=== PATIENT | male | born 1955 | race Caucasian/White ===

== ENCOUNTER → 2021-04-12 | Outpatient (CLI) | payer MEDICARE ==
[~2021-04-12] MED LIST: BUPIVACAINE MPF 0.25% 10 ML VIAL. ONE; CRESTOR5 MG PO; IOHEXOL 180 MG/ML 10 ML VIAL. ONE; LISI20TA18 PO; METO-239 PO; TRAM50TA PO; VENL150C PO; methylPREDNISolone ACETATE 80 MG/ML VIAL. ONE
--- NOTE | 2021-04-12 15:36 | PDOC1 ---
INITIAL PAIN CONSULT DATE OF SERVICE: DOS: DATE: 04/12/21 TIME: 15:29 CHIEF COMPLAINT: Chief Complaint: Low back and left lower extremity pain HISTORY OF PRESENT ILLNESS: 65-year-old male presents history of pain low back left lower extremity since about 2008 has had surgery on his back with fusion at the L3-4 level which decrease the pain temporarily but the pain returned about a year and a half ago or so without the result of any specific injury or accident that he is aware of. Patient reports now the pain is in the low back on the left side rating the posterior lateral thigh lateral calf into the posterior calf and occasionally to the foot patient reports is tingling and burning described the pain in the back is constant and stabbing sharp in the leg throbbing in the leg and back with some numbness in the leg and foot on the left side can be aching as well. Patient reports is worse with walking standing better with sitting or laying down but wakes him from sleep about once or twice a night does not affect his bowel bladder control does affect his ability to walk and he has a cane he uses at times it does not have that with him today. Patient has had epidural injections in the past in [facility] [place][Note 2] as well as chiropractic treatment recently physical therapy was tried but was not significantly decreasing the pain he is doing physical therapy exercises daily however and continues to walk daily as well. Patient is taking tramadol as well as hydrocodone both of which do decrease the pain he is out had any hydrocodone for many years with tramadol he took as recently as this morning which decrease the pain by about 50%. Patient had a CT scan showing dorsal instrumented fusion L3-L4 with accelerated general changes at the junctional level seen at L2-3 and more so than L4-L5. Patient has at least moderate central stenosis at L2-3. PAST MEDICAL HISTORY: PMH: Hypertension, arthritis, depression, hearing loss PREVIOUS SURGERIES: Past Surgical Hx: Hernia surgery x2 lumbar laminectomy 2010 2011 with fusion, cervical spine fusion CURRENT MEDICATIONS: Current Meds: Active Scripts Medications Dose Route/Sig Max Daily Dose Days Date Category Metoprolol Succinate ( Xl ) (Metoprolol Succinate) 25 Mg Tab.er.24h Unknown Dose PO DAILY 04/12/21 Reported Effexor Xr (Venlafaxine Hcl) 150 Mg Cap.er.24h 1 Cap PO DAILY 04/12/21 Reported Crestor (Rosuvastatin Calcium) 5 Mg Tablet 10 Mg PO HS 04/12/21 Reported Lisinopril 20 Mg Tablet 1 Tab PO DAILY 04/12/21 Reported Tramadol Hcl 50 Mg Tablet 25 Mg PO Q6HRS PRN 04/12/21 Reported FAMILY HISTORY: Family Hx: Colon cancer, heart disease SOCIAL HISTORY: Social Hx: Patient drinks alcohol about 10 beverages a week does not smoke says any illegal illicit or recreational drugs is single lives locally in [facility] REVIEW OF SYSTEMS: ROS: Positive for those items mentioned in history of present illness, all systems are reviewed, otherwise negative ,and are complete full and well-documented on patient's chart. PHYSICAL EXAM: VS: Blood pressure is 131/81 pulse 74 respirations 18 temperature is 99.1 F height is 6 foot weight is 214 pounds PE: PHYSICAL EXAMINATION: GENERAL: The patient is awake, alert, oriented, appropriate, very pleasant demeanor HEENT: Shows normocephalic, atraumatic. Extraocular movements are intact and symmetrical. Oral cavity: Mucous membranes moist and pink. Dentition is intact. NECK: Shows anterior throat supple without palpable lymphadenopathy noted. Swallow reflex symmetrical. CHEST: Shows normal on inspection. Breath sounds are clear bilaterally, no rales rhonchi or wheeze auscultated. HEART: Shows S1, S2 clear. No murmurs auscultated. ABDOMEN: Soft, nontender, nondistended, obese. No palpable organomegaly is noted. No rebound or guarding demonstrated. BACK: Shows spine grossly in the midline. Normal-appearing cervical lordotic curvature. There is slightly increased thoracic kyphosis, some minor flattening of the lumbar lordotic curvature. Lumbar paraspinous muscles show symmetrical on inspection, on palpation shows some moderate tenderness diffusely throughout the upper, middle and lower distribution of the paraspinous muscles bilaterally and also into the lower thoracic paraspinous musculature, firm and tender, but without specific trigger points, without radiation of pain. The patient has good rotational motion of the lumbar spine, both laterally as well as extension and flexion without significant difficulty. No tenderness over the spinous processes, sacrum or sacroiliac regions. EXTREMITIES: Lower extremities show deep tendon reflexes 2+ in the patellar and tendo calcaneus tendons. Motor exam is 5 on a scale of 5 with right dorsiflexion, extension, quadriceps and hamstring flexion and 4/5 on the left. Peripheral pulses are one posterior tibial. No peripheral edema is noted bilaterally. Lower extremities are warm and dry to touch, equal in color and appearance. Straight leg raise noted to be positive on the left at approximately 40 degrees, decreased with knee flexion, right side is negative. Gaenslen's and Mamadou's maneuvers are negative bilateral as well. The patient is able to stand, stand on his toes loses balance with putting all his weight on his left leg but walks with a slight favoring gait does appear to favor the left lower extremity mildly but without foot drop without any assistive devices on a short walk in the office today. SKIN: Shows warm and dry, good turgor. No edema. No sores, rashes or bruising throughout. IMPRESSION: Impression: 65-year-old male with long history of low back left lower extremity pain worse over the past year or so in a radicular fashion. CT scan lumbar spine as noted Arthritis Hypertension Hearing loss Plan: Options were discussed with the patient including conservative medical management physical therapies and interventional techniques. Patient would like to interventional techniques. We discussed a left L4-5 transforaminal epidural injection using description as well as anatomical models to describe the procedure. Risks were discussed including but not limited to: Bleeding, infection, possibility of epidural hematoma and subsequent neurological compromise, dural puncture, headaches, spinal cord and/or nerve damage, side effects of steroid medication, and poor results regarding pain control. Patient understands and wished to proceed. Patient will return to the clinic in approximately 2 weeks for follow-up, was counseled as to return appointment activity level and side effects to be aware of. Under sterile prep and drape patient was placed in prone position using C-arm fluoroscopic guidance to identify the L4-5 distribution oblique and slightly cephalad angled C arm. The left L4-5 target was identified and using lidocaine for anesthetizing the skin 22-gauge Lorri pencil point needle was then used to enter the skin and into the subcutaneous tissues using direct C-arm fluoroscopic guidance to guide the needle into the transforaminal aspect of the left L4-5 vertebrae this was confirmed with lateral views showing the needle tip in the superior aspect of the paravertebral region. Aspiration was noted to be negative, -1.5 cc of contrast was then injected with good spread both medially into the epidural space as well as laterally along the nerve root without uptake and without distribution and uptake on digital subtraction. At this time, a solution containing 2 cc of 0.25% bupivacaine and 80 mg of Depo-Medrol was then injected. Needle was withdrawn and sterile bandage was applied. Patient tolerated procedure well had no immediate complications HEVER HERNANDEZ MD Apr 12, 2021 15:36
--- NOTE | 2021-04-12 15:37 | PDOC4 ---
Procedure Note: Procedure Note: Patient was consented for left L4-5 transforaminal lumbar epidural steroid injection with fluoroscopic guidance. Risks were discussed including but not limited to: Bleeding, infection, possibility of epidural hematoma and subsequent neurological compromise, dural puncture, headaches, spinal cord and/or nerve damage, side effects of steroid medication, potential injection into the vertebral artery at that level and permanent ischemic damage, and poor results regarding pain control. Patient understands and wishes to proceed. Under sterile prep and drape patient was placed in prone position using C-arm fluoroscopic guidance to identify the L4-5 distribution oblique and slightly cephalad angled C arm. The left L4-5 target was identified and using lidocaine for anesthetizing the skin 22-gauge Lorri pencil point needle was then used to enter the skin and into the subcutaneous tissues using direct C-arm fluoroscopic guidance to guide the needle into the transforaminal aspect of the left L4-5 vertebrae this was confirmed with lateral views showing the needle tip in the superior aspect of the paravertebral region. Aspiration was noted to be negative, -1.5 cc of contrast was then injected with good spread both medially into the epidural space as well as laterally along the nerve root without uptake and without distribution and uptake on digital subtraction. At this time, a solution containing 2 cc of 0.25% bupivacaine and 80 mg of Depo-Medrol was then injected. Needle was withdrawn and sterile bandage was applied. Patient tolerated procedure well had no immediate complications. HEVER HERNANDEZ MD Apr 12, 2021 15:37
== END | disposition home or self-care (01) ==
LOC: PNCL 09:19
PROVIDERS: ATTEND Anesthesiology
DX: M54.5 Low back pain (principal); M79.605 Pain in left leg; I10 Essential (primary) hypertension; M19.90 Unspecified osteoarthritis, unspecified site; F32.9 Major depressive disorder, single episode, unspecified; Z79.899 Other long term (current) drug therapy; Z98.890 Other specified postprocedural states
CPT/HCPCS: 64483; J1040; J3490; Q9965

== ENCOUNTER → 2021-05-31 | Outpatient (CLI) | payer MEDICARE ==
[~2021-05-31] MED LIST changes: +HYDR-2761 PO
--- NOTE | 2021-05-31 15:31 | PDOC ---
Progress Note - Pain Clinic Date of Service: DOS: DATE: 05/31/21 TIME: 15:27 Diagnosis: Dx: Lumbar to colopathy with lumbar degenerative disease lumbar spinal stenosis lumbar postlaminectomy syndrome History or Present Illness: HPI: 66-year-old returns for follow-up status post left L4-5 transforaminal injection. Patient reports he did very well with about 75% improvement for the first 3 to 4 weeks following the injection. Patient reports pain returning down the low back and the left lower extremity posterior gluteus posterior lateral thigh lateral anterior thigh anteromedial thigh and lateral thigh but mostly the front of the lower leg patient reports is constant severe unbearable at times burning aching pain came back fairly quickly patient reports prior to this he was doing much better with increased activity distance walking doing household activities travel with greater ease and comfort sleeping better at night patient reports the pain is returning now rates a 10 on scale 10 is worse over the past week 9 on average 7 its least is a 7 today. Patient works burning aching constant severe also pain in the mid upper back and between the shoulder blades with some increased pain secondary. Patient reports no new bowel or bladder incontinence patient reports no motor deficits but significant fatigability of the left lower extremity compared to the right with ambulation. Physical Exam: VS: Blood pressure is 150/93 pulse 101 respirations 18 temperature 98.0 F height is 6 foot weight is 209 pounds PE: PHYSICAL EXAMINATION: GENERAL: The patient is awake, alert, oriented, appropriate, very pleasant in d emeanor HEENT: Shows normocephalic, atraumatic. Extraocular movements are intact and symmetrical. Oral cavity: Mucous membranes moist and pink. Dentition is intact. NECK: Shows anterior throat supple without palpable lymphadenopathy noted. Swallow reflex symmetrical. CHEST: Shows normal on inspection. Breath sounds are clear bilaterally, no rales or rhonchi. HEART: Shows S1, S2 clear. No murmurs auscultated. ABDOMEN: Soft, nontender, nondistended, obese. No palpable organomegaly is noted. BACK: Shows spine grossly in the midline. Normal-appearing cervical lordotic curvature. There is slightly increased thoracic kyphosis, some minor flattening of the lumbar lordotic curvature. Lumbar paraspinous muscles show symmetrical on inspection, on palpation shows some moderate tenderness diffusely throughout the upper, middle and lower distribution of the paraspinous musculature, but without specific trigger points, without radiation of pain. The patient has good rotational motion of the lumbar spine, both laterally as well as extension and flexion without significant difficulty. No tenderness over the spinous processes, sacrum or sacroiliac regions. EXTREMITIES: Lower extremities show deep tendon reflexes 2+ in the patellar and tendo calcaneus tendons. Motor exam is 5 on a scale of 5 with right dorsiflexion, extension, quadriceps and hamstring flexion and 4/5 on the left. Peripheral pulses are 1+ posterior tibial. No peripheral edema is noted bilaterally. Lower extremities are warm and dry to touch, equal in color and appearance. SKIN: Shows warm and dry, good turgor. No edema. No sores, rashes or bruising throughout. Procedure: Procedure: Options were discussed with the patient. Patient's old chart was reviewed as his current medication regimen updated current review of systems updated today as well. We will proceed with a left L4-5 transforaminal injection today with fluoroscopic guidance. Risks were discussed including but not limited to: Bleeding, infection, possibility of epidural hematoma and subsequent neurological compromise, dural puncture, headaches, spinal cord and/or nerve damage, potential injection of the vertebral artery at that level and permanent ischemic damage, side effects of steroid medication, and poor results regarding pain control. Patient understands and wished to proceed. Patient will return to clinic in approximate 2 weeks for follow-up, was counseled as to return appointment, activity levels, and side effects beware of. Medication Injected: Med Injected: Under sterile prep and drape patient was placed in prone position using C-arm fluoroscopic guidance to identify the L4-5 distribution oblique and slightly cephalad angled C arm. The left L4-5 target was identified and using lidocaine for anesthetizing the skin 22-gauge Lorri pencil point needle was then used to enter the skin and into the subcutaneous tissues using direct C-arm fluoroscopic guidance to guide the needle into the transforaminal aspect of the left L4-5 vertebrae this was confirmed with lateral views showing the needle tip in the superior aspect of the paravertebral region. Aspiration was noted to be negative, -1.5 cc of contrast was then injected with good spread both medially into the epidural space as well as laterally along the nerve root without uptake and without distribution and uptake on digital subtraction. At this time, a solution containing 2 cc of 0.25% bupivacaine and 80 mg of Depo-Medrol was then injected. Needle was withdrawn and sterile bandage was applied. Patient tolerated procedure well had no immediate complications Condition at Discharge: Condition at Discharge: Condition at discharge stable, patient alert the procedure well and had no complications. HEVER HERNANDEZ MD May 31, 2021 15:31
== END | disposition home or self-care (01) ==
LOC: PNCL 14:04
PROVIDERS: ATTEND Anesthesiology
DX: M51.16 Intervertebral disc disorders with radiculopathy, lumbar region (principal); M48.061 Spinal stenosis, lumbar region without neurogenic claudication; M96.1 Postlaminectomy syndrome, not elsewhere classified; Z79.899 Other long term (current) drug therapy
CPT/HCPCS: 64483; J1040; J3490; Q9965

== ENCOUNTER → 2021-06-09 | Outpatient (CLI) | payer MEDICARE ==
[~2021-06-09] MED LIST changes: -BUPIVACAINE MPF 0.25% 10 ML VIAL. ONE; -IOHEXOL 180 MG/ML 10 ML VIAL. ONE; -methylPREDNISolone ACETATE 80 MG/ML VIAL. ONE
--- NOTE | 2021-06-09 14:32 | PDOC ---
Progress Note - Pain Clinic Date of Service: DOS: DATE: 06/09/21 TIME: 14:30 Diagnosis: Dx: Lumbar radiculopathy with lumbar degenerative disc disease lumbar spinal stenosis and lumbar postlaminectomy syndrome History or Present Illness: HPI: Telemedicine visit today with patient with identity verified with full date of and full name, total time spent: 14 minutes 66-year-old male via telemedicine visit today after lumbar left L4-5 transforaminal injection x2 most recently May 31. Patient reports he did very well with about a 75% improvement but the pain returning now and is questioning if he can have a refill of hydrocodone as we gave him 30 tablets on that date and he is taken those. Patient reports while his pain was better it only lasted for about a week or so when the pain began to return and the hydrocodone does help him get through his daily activities. We discussed in detail that we would not provide these long-term but while we are treating him is certainly an option to help him get through till his next treatment is completed. Patient understands we will call in electronically prescribed hydrocodone 5 mg #30 with instructions side effects aware discussed. Patient will follow up in approximately 1 week as scheduled. HEVER HERNANDEZ MD Jun 09, 2021 14:32
== END | disposition home or self-care (01) ==
LOC: PNCL 11:17
PROVIDERS: ATTEND Anesthesiology
DX: M51.16 Intervertebral disc disorders with radiculopathy, lumbar region (principal); M48.061 Spinal stenosis, lumbar region without neurogenic claudication; M96.1 Postlaminectomy syndrome, not elsewhere classified; Z79.899 Other long term (current) drug therapy
CPT/HCPCS: G0463

== ENCOUNTER → 2021-06-15 | Outpatient (CLI) | payer MEDICARE ==
[~2021-06-15] MED LIST changes: +BUPIVACAINE MPF 0.25% 10 ML VIAL. ONE; +IOHEXOL 180 MG/ML 10 ML VIAL. ONE; +methylPREDNISolone ACETATE 80 MG/ML VIAL. ONE
--- NOTE | 2021-06-15 10:05 | PDOC ---
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 Patient report is now aching sharp burning constant severe unbearable in the left leg is not back to baseline but about 40% improvement overall only at where he was previously 80% prior to the activity l week. Patient reports he is taking hydrocodone 1 in the morning and a half at night scribes pain is a 9 on scale 10 is worse over the past week 9 on average 7 its least is a 7 today. Patient scribes as aching and burning constant severe and unbearable at times radiating the left lower extremity posterior gluteus lateral thigh anterior thigh medial thigh medial lower leg and lateral lower leg with some numbness as well. Patient reports weakness in the left leg as well with walking and standing. Patient reports he continues to sleep fairly well generally does not awaken him from sleep at night. Patient reports no bowel or bladder incontinence. Physical Exam: VS: Blood pressure is 174 103 pulse 107 respirations 16 temperature 98.2 F weight is 205 pounds. PE: PHYSICAL EXAMINATION: GENERAL: The patient is awake, alert, oriented, appropriate, very pleasant in demeanor HEENT: Shows normocephalic, atraumatic. Extraocular movements are intact and symmetrical. Oral cavity: Mucous membranes moist and pink. Dentition is intact. NECK: Shows anterior throat supple without palpable lymphadenopathy noted. Swallow reflex symmetrical. CHEST: Shows normal on inspection. Breath sounds are clear bilaterally, distant no rales or rhonchi. HEART: Shows S1, S2 clear. No murmurs auscultated. ABDOMEN: Soft, nontender, nondistended, obese. No palpable organomegaly is noted. BACK: Shows spine grossly in the midline. Normal-appearing cervical lordotic curvature. There is increased thoracic kyphosis, some flattening of the lumbar lordotic curvature with well-healed surgical scarring again noted. Lumbar paraspinous muscles show symmetrical on inspection, on palpation shows some moderate tenderness diffusely throughout the upper, middle and lower distribution of the paraspinous muscles, but without specific trigger points, without radiation of pain. The patient has good rotational motion of the lumbar spine, both laterally as well as extension and flexion without significant difficulty. No tenderness over the spinous processes, sacrum or sacroiliac regions. EXTREMITIES: Lower extremities show deep tendon reflexes 2 in the patellar and tendo calcaneus tendons. Motor exam is 5 on a scale of 5 with right dorsiflexion, extension, quadriceps and hamstring flexion and 4/5 on the left. Peripheral pulses are 1 posterior tibial. No peripheral edema is noted bilaterally. Lower extremities are warm and dry to touch, equal in color and appearance. SKIN: Shows warm and dry, good turgor. No edema. No sores, rashes or bruising throughout. Procedure: Procedure: Options discussed with patient. Patient chart reviewed his current medication regimen updated current view systems updated today as well. We will proceed with a third in the series left L4-5 transforaminal epidural steroid injection with fluoroscopic guidance. Risks were discussed including but not limited to: Bleeding, infection, possibility of epidural hematoma and subsequent neurologi panda compromise, dural puncture, headaches, spinal cord and/or nerve damage, potential injection of vertebral artery at that level and permanent ischemic damage, side effects of steroid medication, and poor results regarding pain control. Patient understands and wished to proceed. Also discussed addition of muscle relaxant as these have some significant spasticity in the mid upper back and we will prescribe new medication of cyclobenzaprine 10 mg 3 times daily. Patient was given instructions well side effects aware with the medication. Medication Injected: Med Injected: Under sterile prep and drape patient was placed in prone position using C-arm fluoroscopic guidance to identify the L4-5 distribution oblique and slightly ce phalad angled C arm. The left L4-5 target was identified and using lidocaine for anesthetizing the skin 22-gauge Lorri pencil point needle was then used to enter the skin and into the subcutaneous tissues using direct C-arm fluoroscopic guidance to guide the needle into the transforaminal aspect of the left L4-5 vertebrae this was confirmed with lateral views showing the needle tip in the superior aspect of the paravertebral region. Aspiration was noted to be negative, -1.5 cc of contrast was then injected with good spread both medially into the epidural space as well as laterally along the nerve root without uptake and without distribution and uptake on digital subtraction. At this time, a solution containing 2 cc of 0.25% bupivacaine and 80 mg of Depo-Medrol was then injected. Needle was withdrawn and sterile bandage was applied. Patient tolerated procedure well had no immediate complications Condition at Discharge: Condition at Discharge: Condition at discharge stable, pain tolerated the procedure well and had no complications. New medication of Flexeril 10 mg 3 times daily will be called into patient's pharmacy. Patient was given instructions well side effects beware with the medication. HEVER HERNANDEZ MD Jun 15, 2021 10:05
--- NOTE | 2021-06-15 10:06 | PDOC4 ---
Procedure Note: ICD 10 Code: ICD 10 Code: M54.16 M4 8.06 M51.36 M 96.1 Procedure Note: Patient was consented for left L4-5 lumbar transforaminal steroid injection with fluoroscopic guidance. Risks were discussed including but not limited to: Bleeding, infection, possibility of epidural hematoma and subsequent neurol ogical compromise, dural puncture, headaches, spinal cord and/or nerve damage, potential injection of the vertebral artery at that level and permanent ischemic damage, side effects of steroid medication, and poor results regarding pain control. Patient understands and wished to proceed. Under sterile prep and drape patient was placed in prone position using C-arm fluoroscopic guidance to identify the L4-5 distribution oblique and slightly cephalad angled C arm. The left L4-5 target was identified and using lidocaine for anesthetizing the skin 22-gauge Lorri pencil point needle was then used to enter the skin and into the subcutaneous tissues using direct C-arm fluoroscopic guidance to guide the needle into the transforaminal aspect of the left L4-5 vertebrae this was confirmed with lateral views showing the needle tip in the superior aspect of the paravertebral region. Aspiration was noted to be negative, -1.5 cc of contrast was then injected with good spread both medially into the epidural space as well as laterally along the nerve root without uptake and without distribution and uptake on digital subtraction. At this time, a solution containing 2 cc of 0.25% bupivacaine and 80 mg of Depo-Medrol was then injected. Needle was withdrawn and sterile bandage was applied. Patient tolerated procedure well had no immediate complications HEVER HERNANDEZ MD Jun 15, 2021 10:06
== END | disposition home or self-care (01) ==
LOC: PNCL 09:23
PROVIDERS: ATTEND Anesthesiology
DX: M51.16 Intervertebral disc disorders with radiculopathy, lumbar region (principal); M48.061 Spinal stenosis, lumbar region without neurogenic claudication; M96.1 Postlaminectomy syndrome, not elsewhere classified; Z79.899 Other long term (current) drug therapy
CPT/HCPCS: 64483; J1040; J3490; Q9965

== ENCOUNTER → 2021-11-01 | Outpatient (CLI) | payer MEDICARE ==
[~2021-11-01] MED LIST changes: +DEXAMETHASONE PRES.FREE 10 MG/ML VIAL. ONE; +UBID50TA PO; -methylPREDNISolone ACETATE 80 MG/ML VIAL. ONE
--- NOTE | 2021-11-01 10:20 | PDOC ---
Progress Note - Pain Clinic Date of Service: DOS: DATE: 11/01/21 TIME: 10:15 Diagnosis: Dx: Lumbar radiculopathy lumbar degenerative disease lumbar spinal stenosis and lumbar postlaminectomy syndrome Osteoarthritis History or Present Illness: HPI: 66-year-old male returns last seen June 15, 2021 with very good results after transforaminal injection on the left at L4-5 at 95% improvement for the first 2 months and then for 3 months later got 75% improvement pain is returning no becoming more noticeable in the left lower extremity posterior gluteus lateral thigh anterior thigh medial thigh medial lower leg into the ankle and foot and the great toe on the left side only patient reports it is sore to the touch in the back and is having difficulty with balance and some foot drop occasionally with walking patient report is aching and burning can be constant as well patient reports a 9 on scale 10 is worse over the past week 8 on average 6 its least is a 6 today patient reports is better with sitting or laying down generally does not awaken him from sleep most nights but over the past few weeks it has patient reports no bowel or bladder incontinence but significant fatigability the left leg and has reports that he "cannot feel my leg when stepping or standing" also reports that his toe is curling on the left side which is causing difficulty with ambulation as well. Patient scribes pain is aching and burning can be constant shooting and stabbing in the leg. Patient also reports significant pain in the upper back with some cracking and popping sensations as well as soreness in the joints of the shoulders. Physical Exam: VS: Blood pressure is 150/89 pulse 107 respirations 16 temperature 98.3 F height is 6 foot weight is 232 pounds. PE: PHYSICAL EXAMINATION: GENERAL: The patient is awake, alert, oriented, appropriate, very pleasant in demeanor HEENT: Shows normocephalic, atraumatic. Extraocular movements are intact and symmetrical. Oral cavity: Mucous membranes moist and pink. Dentition is intact. NECK: Shows anterior throat supple without palpable lymphadenopathy noted. Swallow reflex symmetrical. CHEST: Shows normal on inspection. Breath sounds are clear bilaterally, distant but no rales rhonchi or wheezes auscultated. HEART: Shows S1, S2 clear. No murmurs auscultated. ABDOMEN: Soft, nontender, nondistended. No palpable organomegaly is noted. No rebound or guarding demonstrated. BACK: Shows spine grossly in the midline. Normal-appearing cervical lordotic curvature. There is mildly increased thoracic kyphosis, some flattening of the lumbar lordotic curvature, with well-healed surgical scarring noted. Thoracic paraspinous muscles show symmetrical inspection on palpation some moderate tenderness diffusely bilaterally between the rhomboid distribution as well as into the inferior cervical distribution but without atrophy hypertrophy or asymmetry. Lumbar paraspinous muscles show symmetrical on inspection, on palpation shows some moderate tenderness diffusely throughout the upper, middle and lower distribution of the paraspinous muscles, but without specific trigger points, without radiation of pain. The patient has good rotational motion of the lumbar spine, both laterally as well as extension and flexion without significant difficulty. No tenderness over the spinous processes, sacrum or sacroiliac regions. EXTREMITIES: Lower extremities show deep tendon reflexes 2+ in the patellar and tendo calcaneus tendons. Motor exam is 5 on a scale of 5 with right dorsiflexion, extension, quadriceps and hamstring flexion and 4/5 on the left. Peripheral pulses are 1 posterior tibial. No peripheral edema is noted bilaterally. Lower extremities are warm and dry. SKIN: Shows warm and dry, good turgor. No edema. No sores, rashes or bruising throughout. Procedure: Procedure: Options were discussed with patient. Patient's old chart was reviewed his current medication regimen updated current review of systems updated today as well. We will proceed with a left-sided L4-5 transforaminal epidural steroid injection today with fluoroscopic guidance. Risks were discussed including but not limited to: Bleeding, infection, possibility of epidural hematoma and subsequent neurological compromise, dural puncture, headaches, spinal cord and/or nerve damage, potential injection into the vertebral artery at that level and permanent ischemic damage, side effects of steroid medication, and poor results regarding pain control. Patient understands and wished to proceed. Patient will return to clinic in approximately 2 weeks for follow-up, was counseled as to return appointment, activity level, and side effects to be aware of. Also, discussing patient's arthritic symptoms, we will prescribe new medication of meloxicam 15 mg 1 tablet daily. Patient was given instruction as well as side effects beware with the new prescription medication as well. Medication Injected: Med Injected: Under sterile prep and drape patient was placed in prone position using C-arm fluoroscopic guidance to identify the L4-5 distribution oblique and slightly cephalad angled C arm. The left L4-5 target was identified and using lidocaine for anesthetizing the skin 22-gauge Lorri pencil point needle was then used to enter the skin and into the subcutaneous tissues using direct C-arm fluoroscopic guidance to guide the needle into the transforaminal aspect of the left L4-5 vertebrae this was confirmed with lateral views showing the needle tip in the superior aspect of the paravertebral region. Aspiration was noted to be negative, -1.5 cc of contrast was then injected with good spread both medially into the epidural space as well as laterally along the nerve root without uptake and without distribution and uptake on digital subtraction. At this time, a solution containing 2 cc of 0.25% bupivacaine and 10 mg dexamethasone was then injected. Needle was withdrawn and sterile bandage was applied. Patient tolerated procedure well had no immediate complications Condition at Discharge: Condition at Discharge: Condition at discharge stable, patient Oscar the procedure well and had no complications. HEVER HERNANDEZ MD Nov 01, 2021 10:20
== END | disposition home or self-care (01) ==
LOC: PNCL 09:27
PROVIDERS: ATTEND Anesthesiology
DX: M51.16 Intervertebral disc disorders with radiculopathy, lumbar region (principal); M48.061 Spinal stenosis, lumbar region without neurogenic claudication; M96.1 Postlaminectomy syndrome, not elsewhere classified; M19.90 Unspecified osteoarthritis, unspecified site; Z79.899 Other long term (current) drug therapy
CPT/HCPCS: 64483; J1100; J3490; Q9965

== ENCOUNTER → 2022-01-24 | Outpatient (CLI) | payer MEDICARE ==
[~2022-01-24] MED LIST changes: -VENL150C PO; +VENL150C3 PO
--- NOTE | 2022-01-24 12:52 | PDOC ---
Progress Note - Pain Clinic Date of Service: DOS: DATE: 01/24/22 TIME: 12:48 Diagnosis: Dx: Lumbar radiculopathy with lumbar degenerative disease lumbar spinal stenosis and lumbar postlaminectomy syndrome History or Present Illness: HPI: 66-year-old male returns for follow-up status post left transforaminal injection L45 last seen November 01, 2021 patient did very well reports the numbness in his left foot is much better and has better spatial orientation with walking without having a look at his left foot after the injections patient reports the pain returning now in the low back and left lower extremity posterior gluteus posterior lateral thigh lateral anterior thigh anteromedial thigh medial lower leg and into the foot and as well as in the low back patient reports some pain in the right side low back which is new for him as well but only present for about a month or so not the result of any injury or accident that he is aware of patient reports he is sleeping fairly well at night although it is beginning to awaken him from sleep once again and the right sided low back pain is somewhat concerning however it is not radiating into the lower extremity like the left side has been doing. Patient reports no loss of motor function but significant fatigability and numbness in the left leg and foot again better after the last visit patient was increasing distance walking doing household activities travel with greater ease and comfort sleeping better at night now is beginning to be more difficult with all these activities patient reports his pain as a 6-9 on scale 10 is worse over the past week 8 on average 6 at its least and is a 6 today. Patient reports no bowel or bladder incontinence. Physical Exam: VS: Blood pressure is 143/98 pulse 103 respirations are 18 temperature is 98.8 F height is 6 foot weight is 226 pounds. PE: PHYSICAL EXAMINATION: GENERAL: The patient is awake, alert, oriented, appropriate, very pleasant in demeanor HEENT: Shows normocephalic, atraumatic. Extraocular movements are intact and symmetrical. Oral cavity: Mucous membranes moist and pink. Dentition is intact. NECK: Shows anterior throat supple without palpable lymphadenopathy noted. Swallow reflex symmetrical. CHEST: Shows normal on inspection. Breath sounds are clear bilaterally. HEART: Shows S1, S2 clear. No murmurs auscultated. ABDOMEN: Soft, nontender, nondistended. No palpable organomegaly is noted. No rebound or guarding demonstrated. BACK: Shows spine grossly in the midline. Normal-appearing cervical lordotic curvature. There is slightly increased thoracic kyphosis, some moderate flattening of the lumbar lordotic curvature with well-healed surgical scarring noted. Lumbar paraspinous muscles show symmetrical on inspection, on palpation shows some moderate tenderness diffusely throughout the upper, middle and lower distribution of the paraspinous muscles, but without specific trigger points, without radiation of pain. The patient has good rotational motion of the lumbar spine, both laterally as well as extension and flexion without significant difficulty. EXTREMITIES: Lower extremities show deep tendon reflexes 2 in the patellar and tendo calcaneus tendons. Motor exam is 5 on a scale of 5 with right dorsiflexion, extension, quadriceps and hamstring flexion and 4/5 on the left. Peripheral pulses are 1+ posterior tibial. No peripheral edema is noted bilaterally. Lower extremities are warm and dry to touch, equal in color and appearance. SKIN: Shows warm and dry, good turgor. No edema. No sores, rashes or bruising throughout. Procedure: Procedure: -year-oldOptions discussed with patient. Patient's old chart was reviewed his current medication regimen updated current review of systems updated today as we ll. We will proceed with a left-sided L4-5 transforaminal injection today with fluoroscopic guidance. Risks were discussed including but not limited to: Bleeding, infection, possibility of epidural hematoma and subsequent neurological compromise, dural puncture, headaches, spinal cord and/or nerve damage, potential injection of vertebral artery at level and permanent ischemic damage, side effects of steroid medication, and poor results regarding pain control. Patient understands and wished to proceed. Patient will return to the clinic in approximately 4 weeks for follow-up, was counseled as to return appointment, activity level, and side effects to be aware of. Medication Injected: Med Injected: Under sterile prep and drape patient was placed in prone position using C-arm fluoroscopic guidance to identify the L4-5 distribution oblique and slightly cephalad angled C arm. The left L4-5 target was identified and using lidocaine for anesthetizing the skin 22-gauge Lorri pencil point needle was then used to enter the skin and into the subcutaneous tissues using direct C-arm fluoroscopic guidance to guide the needle into the transforaminal aspect of the left L4-5 vertebrae this was confirmed with lateral views showing the needle tip in the superior aspect of the paravertebral region. Aspiration was noted to be negative, -1.5 cc of contrast was then injected with good spread both medially into the epidural space as well as laterally along the nerve root without uptake and without distribution and uptake on digital subtraction. At this time, a solution containing 2 cc of 0.25% bupivacaine and 20 mg dexamethasone was then injected. Needle was withdrawn and sterile bandage was applied. Patient tolerated procedure well had no immediate complications Condition at Discharge: Condition at Discharge: Condition at discharge stable, paced tolerated procedure well and had no complications. HEVER HERNANDEZ MD January 24, 2022 12:52
--- NOTE | 2022-01-24 12:53 | PDOC4 ---
Procedure Note: ICD 10 Code: ICD 10 Code: M54.16 M51.36 M48.06 M96.1 Procedure Note: Patient was consented for left L4-5 transforaminal epidural steroid injection with fluoroscopic guidance. Risks were discussed including but not limited to: Bleeding, infection, possibility of epidural hematoma and subsequent neurol ogical compromise, dural puncture, headaches, spinal cord and/or nerve damage, potential injection into the vertebral artery at level and permanent ischemic damage, side effects of steroid medication, and poor results regarding pain control. Patient understands and wished to proceed. Under sterile prep and drape patient was placed in prone position using C-arm fluoroscopic guidance to identify the L4-5 distribution oblique and slightly cephalad angled C arm. The left L4-5 target was identified and using lidocaine for anesthetizing the skin 22-gauge Lorri pencil point needle was then used to enter the skin and into the subcutaneous tissues using direct C-arm fluoroscopic guidance to guide the needle into the transforaminal aspect of the left L4-5 vertebrae this was confirmed with lateral views showing the needle tip in the superior aspect of the paravertebral region. Aspiration was noted to be negative, -1.5 cc of contrast was then injected with good spread both medially into the epidural space as well as laterally along the nerve root without uptake and without distribution and uptake on digital subtraction. At this time, a stuart ution containing 2 cc of 0.25% bupivacaine and 20 mg dexamethasone was then injected. Needle was withdrawn and sterile bandage was applied. Patient tolerated procedure well had no immediate complications HEVER HERNANDEZ MD January 24, 2022 12:53
== END | disposition home or self-care (01) ==
LOC: PNCL 11:27
PROVIDERS: ATTEND Anesthesiology
DX: M51.16 Intervertebral disc disorders with radiculopathy, lumbar region (principal); M48.061 Spinal stenosis, lumbar region without neurogenic claudication; M96.1 Postlaminectomy syndrome, not elsewhere classified; Z79.899 Other long term (current) drug therapy
CPT/HCPCS: 64483; J1100; J3490; Q9965

== ENCOUNTER → 2022-02-14 | Outpatient (CLI) | payer MEDICARE ==
[~2022-02-14] MED LIST changes: -BUPIVACAINE MPF 0.25% 10 ML VIAL. ONE; -DEXAMETHASONE PRES.FREE 10 MG/ML VIAL. ONE; -IOHEXOL 180 MG/ML 10 ML VIAL. ONE
--- NOTE | 2022-02-14 16:27 | PDOC ---
Progress Note - Pain Clinic Date of Service: DOS: DATE: 02/14/22 TIME: 16:23 Diagnosis: Dx: Telemedicine visit today with patient's identity verified with full name as well as full date of . Total time spent 12 minutes, telephone voice only 66-year-old male via telemedicine visit today requesting refill of hydrocodone 5/325 patient was given prescription June 09, 2021 reports he is using it very sparingly and they do indeed help decrease the pain significantly. Patient reports that after his last injection was a transforaminal injection on the left at L4-5 with significant reduction in pain and the sciatic pain is essentially come completely removed from the leg but the back pain is his main complaint. Patient reports no loss of motor function of bowel or bladder incontinence it does well with the medication without any side effects. Patient reports still pain in the mid upper back also some pain at the base of the neck as well but again the left leg is doing much better. Patient reports no bowel or bladder incontinence no motor or sensory deficits. We discussed patient and we will electronically prescribe hydrocodone 5/325mg #30 with instructions and side effects were discussed. Patient will follow up in approximate 30days as scheduled. Physical Exam: PE: HEVER HERNANDEZ MD February 14, 2022 16:27
== END | disposition home or self-care (01) ==
LOC: PNCL 14:19
PROVIDERS: ATTEND Anesthesiology
DX: M54.50 Low back pain, unspecified (principal); Z79.899 Other long term (current) drug therapy
CPT/HCPCS: 99212; G0463